=== PATIENT | female | born 1930 | race Caucasian/White ===

== ENCOUNTER 2016-08-30 13:02 | Inpatient (IN) | payer MEDICARE, OTHER ==
[~2016-08-30] VITALS: Ht 152.4 cm; Wt 47.9 kg
[~2016-08-30 13:02] MED LIST: ASP81EC PO; CLOP75TA41 PO; DIPH25CA66 PO; MET25T PO; MON10T PO
[2016-08-30 14:00] LABS: Basophils # (auto) 0 uL; Basophils % (auto) 0.4 % (0.0-2.0); Eosinophils # (auto) 0.2 uL; Eosinophils % (auto) 3.1 % (0.0-7.0); Hematocrit 32.6 % (36.0-46.0); Lymphocytes # (auto) 1.1 uL; Mean Corpuscular Hemoglobin 31.6 pg (28.0-32.0); Mean Corpuscular Hgb Conc. 33.6 g/dL (32.0-36.0); Mean Platelet Volume 8.1 fL (7.4-10.4); Monocytes # (auto) 0.6 uL; Neutrophils # (auto) 4.6 uL; Neutrophils % (auto) 70.5 % (37.0-80.0); Platelet Count (auto) 219 10^3/uL (140-450); Red Cell Distribution Width 15.7 % (11.6-16.0); White Blood Cell 6.6 10^3/uL (4.4-10.8)
[2016-08-30 14:15] LABS: Albumin 2.9 g/dL (3.4-5.0); Anion Gap 11 (5-15); Aspartate Aminotransferase 10 U/L (15-37); BUN/Creatinine Ratio 15.5; Blood Urea Nitrogen 11 mg/dL (7-18); Calcium 8.1 mg/dL (8.5-10.1); Carbon Dioxide 24 mmol/L (21-32); Chloride 110 mmol/L (98-107); GFR African American 101 mL/min; GFR Non-African American 83 mL/min; Glucose 92 mg/dL (74-106); Potassium 3.3 mmol/L (3.5-5.1); Sodium 145 mmol/L (136-145)
[2016-08-30 14:20] LABS: Alkaline Phosphatase 56 U/L (45-117); Bilirubin, Total 0.3 mg/dL (0.2-1.0); Total Protein 6.2 g/dL (6.4-8.2)
[2016-08-30] MEDS ORDERED: ENOXAPARIN SOD 80 MG/0.8ML SYRINGE SC ONE (16:45)
[2016-08-30] MEDS ORDERED: POTASSIUM CHL 20 Meq TABLET PO ONE ×2 (16:45→17:15)
[2016-08-30] MEDS ORDERED: MONTELUKAST SODIUM 10 MG TAB PO PRN (17:15)
[2016-08-30] MEDS ORDERED: HYDROcodone-ACET 5/325MG TAB PO PRN (17:15)
[2016-08-30] MEDS ORDERED: ACETAMINOPHEN 500 MG TAB PO PRN (17:15)
[2016-08-30] MEDS ORDERED: MORPHINE SULF INJ 2 MG/ML SYRINGE 1ML IV PRN (17:15)
[2016-08-30] MEDS ORDERED: NITROGLYCERIN 0.4 MG SL TAB SL PRN (17:15)
[2016-08-30] MEDS ORDERED: PROMETHAZINE HCL 25 MG/ML 1ML IV PRN (17:15)
[2016-08-30] MEDS ORDERED: LORazepam 0.5 MG TAB PO PRN (17:15)
[2016-08-30] MEDS ORDERED: LACTULOSE 20Gm/30ML SOLN PO PRN ×2 (17:15)
[2016-08-30] MEDS ORDERED: DEXTROSE (50%) 50ML SYRG IV PRN (17:15)
[2016-08-30] MEDS ORDERED: ENOXAPARIN SOD 40 MG/0.4 ML SYRINGE SC ONE (18:00)
[2016-08-30] MEDS ORDERED: CLOPIDOGREL BISULFATE 75 MG TAB PO ONE (18:00)
[2016-08-30] MEDS ORDERED: ASPirin 81 mg TAB PO ONE (18:00)
[2016-08-30 18:02] LABS: INR 0.96 (0.9-1.15); Partial Thromboplastin Time 27.3 sec (22.64-33.71); Prothrombin Time 10.5 sec (9.37-12.3)
[2016-08-30 18:20] LABS: Temperature: 22.7 C (20.0-25.0)
[2016-08-30] MEDS: SODIUM CHLORIDE 0.9% 1,000 ML IV SCH (18:41)
[2016-08-30] MEDS: PANTOPRAZOLE 40 MG TAB PO SCH (18:41)
[2016-08-30] MEDS ORDERED: IOHEXOL 350 MG/ML 100ML IJ ONE (19:42)
[2016-08-30 20:30] VITALS: BP 165/72
[2016-08-30 22:00] VITALS: BP 165/72
[2016-08-30] MEDS: ACCU-CHEK COMFORT CURVE STRIP VI SCH (22:00)
[2016-08-30] MEDS: METOPROLOL TARTRATE 25 MG TAB PO SCH (22:00)
[2016-08-30] MEDS: CLINDAMYCIN 600MG IV 50 ML IV SCH (22:00)
[2016-08-30] MEDS: InsuLIN REG 1unit/0.01ml Soln (100units/ml) SC SCH (22:00)
[2016-08-30] MEDS: ATORVASTATIN 20 MG TAB PO SCH (22:00)
[2016-08-30] MEDS: TEMAZEPAM 15 MG CAP PO PRN (22:10)
[2016-08-31] MEDS: SODIUM CHLORIDE 0.9% 1,000 ML IV SCH (05:36)
[2016-08-31] MEDS: ACCU-CHEK COMFORT CURVE STRIP VI SCH ×4 (06:20→22:00)
[2016-08-31] MEDS: InsuLIN REG 1unit/0.01ml Soln (100units/ml) SC SCH ×4 (06:20→22:00)
[2016-08-31] MEDS: CLINDAMYCIN 600MG IV 50 ML IV SCH ×3 (06:20→22:27)
[2016-08-31 06:25] VITALS: BP 165/80
[2016-08-31] MEDS ORDERED: MEMA5TAB2 PO (06:45)
[2016-08-31] MEDS ORDERED: MEMA10TA PO (06:45)
[2016-08-31] MEDS ORDERED: QUET100T46 PO (06:45)
[2016-08-31] MEDS: METOPROLOL TARTRATE 25 MG TAB PO SCH ×2 (06:54→22:26)
[2016-08-31 08:11] VITALS: BP 165/80
[2016-08-31 08:59] LABS: Basophils # (auto) 0 uL; Basophils % (auto) 0.7 % (0.0-2.0); Eosinophils # (auto) 0.3 uL; Eosinophils % (auto) 5.1 % (0.0-7.0); Hemoglobin 11.7 g/dL (12.2-16.2); Lymphocytes # (auto) 0.8 uL; Lymphocytes % (auto) 11.6 % (10.0-50.0); Mean Corpuscular Hemoglobin 31.2 pg (28.0-32.0); Mean Corpuscular Hgb Conc. 33.4 g/dL (32.0-36.0); Mean Corpuscular Volume 93.3 fL (80.0-100.0); Mean Platelet Volume 8.5 fL (7.4-10.4); Monocytes # (auto) 0.6 uL; Neutrophils # (auto) 5.2 uL; Neutrophils % (auto) 74.6 % (37.0-80.0); Platelet Count (auto) 204 10^3/uL (140-450); Red Cell Distribution Width 15.4 % (11.6-16.0); White Blood Cell 6.9 10^3/uL (4.4-10.8)
[2016-08-31] MEDS: PANTOPRAZOLE 40 MG TAB PO SCH (09:04)
[2016-08-31] MEDS: CLOPIDOGREL BISULFATE 75 MG TAB PO SCH (09:04)
[2016-08-31] MEDS: cefTRIAXone 1GM/50ML D5W 50 ML IV SCH (09:05)
[2016-08-31] MEDS: ENOXAPARIN SOD 40 MG/0.4 ML SYRINGE SC SCH (09:05)
[2016-08-31] MEDS: ASPirin 81 mg TAB PO SCH (09:05)
[2016-08-31 09:08] VITALS: BP 124/72
[2016-08-31 09:20] LABS: Albumin 2.9 g/dL (3.4-5.0); BUN/Creatinine Ratio 16.2; Bilirubin, Total 0.6 mg/dL (0.2-1.0); Calcium 8.2 mg/dL (8.5-10.1); Potassium 4.2 mmol/L (3.5-5.1)
[2016-08-31] MEDS ORDERED: ENOXAPARIN SOD 40 MG/0.4 ML SYRINGE SC SCH (10:00)
[2016-08-31] MEDS ORDERED: ASPirin-EC 81 mg tab PO SCH (10:00)
[2016-08-31 13:00] VITALS: BP 153/77
[2016-08-31] MEDS ORDERED: GABA-497 PO (13:42)
[2016-08-31] MEDS ORDERED: QUET25TA37 PO (13:44)
[2016-08-31] MEDS ORDERED: LORazepam 2MG/ML-1ML VIAL IV PRN (14:30)
[2016-08-31 22:00] VITALS: BP 153/73
[2016-08-31] MEDS: TEMAZEPAM 15 MG CAP PO PRN (22:25)
[2016-08-31] MEDS: ATORVASTATIN 20 MG TAB PO SCH (22:26)
[2016-08-31] MEDS: QUEtiapine FUMARATE 25 MG TAB PO SCH (22:26)
[2016-09-01] MEDS: MORPHINE SULF INJ 2 MG/ML SYRINGE 1ML IV PRN ×3 (03:23→13:12)
[2016-09-01] MEDS: SODIUM CHLORIDE 0.9% 1,000 ML IV SCH ×3 (06:36→17:26)
[2016-09-01] MEDS: CLINDAMYCIN 600MG IV 50 ML IV SCH ×3 (06:44→22:21)
[2016-09-01] MEDS: InsuLIN REG 1unit/0.01ml Soln (100units/ml) SC SCH ×4 (07:00→22:00)
[2016-09-01] MEDS: ACCU-CHEK COMFORT CURVE STRIP VI SCH ×4 (07:12→22:00)
[2016-09-01 08:15] VITALS: BP 130/70
[2016-09-01 09:13] LABS: Basophils # (auto) 0 uL; Basophils % (auto) 0.4 % (0.0-2.0); Eosinophils # (auto) 0.2 uL; Eosinophils % (auto) 3.9 % (0.0-7.0); Hematocrit 33.8 % (36.0-46.0); Hemoglobin 11.2 g/dL (12.2-16.2); Lymphocytes # (auto) 0.6 uL; Lymphocytes % (auto) 10.8 % (10.0-50.0); Mean Corpuscular Hemoglobin 31.1 pg (28.0-32.0); Mean Corpuscular Hgb Conc. 33.2 g/dL (32.0-36.0); Mean Corpuscular Volume 93.9 fL (80.0-100.0); Mean Platelet Volume 8.4 fL (7.4-10.4); Monocytes # (auto) 0.6 uL; Monocytes % (auto) 9.7 % (0.0-12.0); Neutrophils # (auto) 4.5 uL; Neutrophils % (auto) 75.2 % (37.0-80.0); Platelet Count (auto) 218 10^3/uL (140-450); Red Cell Distribution Width 15.6 % (11.6-16.0)
[2016-09-01] MEDS: cefTRIAXone 1GM/50ML D5W 50 ML IV SCH (09:18)
[2016-09-01 09:20] LABS: BUN/Creatinine Ratio 12.5; Calcium 7.8 mg/dL (8.5-10.1); Potassium 3.7 mmol/L (3.5-5.1)
[2016-09-01] MEDS: ASPirin 81 mg TAB PO SCH (09:39)
[2016-09-01] MEDS: FOLIC ACID 1 MG TAB PO SCH (09:39)
[2016-09-01] MEDS: PANTOPRAZOLE 40 MG TAB PO SCH (09:40)
[2016-09-01] MEDS: METOPROLOL TARTRATE 25 MG TAB PO SCH ×2 (09:40→22:27)
[2016-09-01] MEDS: CLOPIDOGREL BISULFATE 75 MG TAB PO SCH (09:40)
[2016-09-01] MEDS: ENOXAPARIN SOD 40 MG/0.4 ML SYRINGE SC SCH (09:41)
[2016-09-01] MEDS: QUEtiapine FUMARATE 25 MG TAB PO SCH ×2 (09:41→22:27)
[2016-09-01] MEDS: CYANOCOBALAMIN 500 MCG TAB PO SCH (09:41)
[2016-09-01 13:07] VITALS: BP 146/74
[2016-09-01 15:43] LABS: Urine Bilirubin Negative (Negative); Urine Color Yellow (Yellow); Urine Glucose Normal (Normal); Urine Ketone Negative (Negative); Urine Nitrite Negative (Negative); Urine RBC 8 /hpf (0 - 4); Urine Squamous Epithelial Cell FEW /hpf (<5); Urine Urobilinogen Normal (Negative)
[2016-09-01 16:36] LABS: Urine Blood 1+ /uL (Negative)
[2016-09-01 22:00] VITALS: BP 143/63
[2016-09-01] MEDS: ATORVASTATIN 20 MG TAB PO SCH (22:26)
[2016-09-02 05:00] VITALS: BP 161/67
[2016-09-02] MEDS: CLINDAMYCIN 600MG IV 50 ML IV SCH ×3 (06:34→22:51)
[2016-09-02] MEDS: InsuLIN REG 1unit/0.01ml Soln (100units/ml) SC SCH ×4 (07:00→22:00)
[2016-09-02] MEDS: ACCU-CHEK COMFORT CURVE STRIP VI SCH ×4 (07:26→22:00)
[2016-09-02 08:00] VITALS: BP 132/61
[2016-09-02 09:00] VITALS: BP 132/61
[2016-09-02] MEDS: METOPROLOL TARTRATE 25 MG TAB PO SCH ×2 (09:15→22:51)
[2016-09-02] MEDS: cefTRIAXone 1GM/50ML D5W 50 ML IV SCH (09:15)
[2016-09-02] MEDS: ASPirin 81 mg TAB PO SCH (09:15)
[2016-09-02] MEDS: FOLIC ACID 1 MG TAB PO SCH (09:15)
[2016-09-02] MEDS: PANTOPRAZOLE 40 MG TAB PO SCH (09:16)
[2016-09-02] MEDS: ENOXAPARIN SOD 40 MG/0.4 ML SYRINGE SC SCH (09:16)
[2016-09-02] MEDS: CLOPIDOGREL BISULFATE 75 MG TAB PO SCH (09:16)
[2016-09-02] MEDS: QUEtiapine FUMARATE 25 MG TAB PO SCH ×2 (09:16→22:51)
[2016-09-02] MEDS: CYANOCOBALAMIN 500 MCG TAB PO SCH (09:17)
[2016-09-02 13:00] VITALS: BP 139/62
[2016-09-02] MEDS: FLORASTOR (S. BOULARDII) 250 MG CAP PO SCH (16:23)
[2016-09-02 17:00] VITALS: BP 135/76
[2016-09-02] MEDS: SODIUM CHLORIDE 0.9% 1,000 ML IV SCH (17:33)
[2016-09-02 22:00] VITALS: BP 149/88
[2016-09-02] MEDS: ATORVASTATIN 20 MG TAB PO SCH (22:51)
[2016-09-02] MEDS: MORPHINE SULF INJ 2 MG/ML SYRINGE 1ML IV PRN (23:04)
[2016-09-03 05:00] VITALS: BP 146/80
[2016-09-03] MEDS: CLINDAMYCIN 600MG IV 50 ML IV SCH ×3 (06:35→21:05)
[2016-09-03] MEDS: ACCU-CHEK COMFORT CURVE STRIP VI SCH ×4 (06:35→21:08)
[2016-09-03] MEDS: InsuLIN REG 1unit/0.01ml Soln (100units/ml) SC SCH ×4 (07:00→21:07)
[2016-09-03] MEDS: ASPirin 81 mg TAB PO SCH (09:16)
[2016-09-03] MEDS: cefTRIAXone 1GM/50ML D5W 50 ML IV SCH (09:16)
[2016-09-03] MEDS: METOPROLOL TARTRATE 25 MG TAB PO SCH ×2 (09:17→21:07)
[2016-09-03] MEDS: FOLIC ACID 1 MG TAB PO SCH (09:17)
[2016-09-03] MEDS: CLOPIDOGREL BISULFATE 75 MG TAB PO SCH (09:18)
[2016-09-03] MEDS: PANTOPRAZOLE 40 MG TAB PO SCH (09:18)
[2016-09-03 11:06] LABS: Basophils # (auto) 0 uL; Basophils % (auto) 0.3 % (0.0-2.0); Eosinophils # (auto) 0.2 uL; Eosinophils % (auto) 3.4 % (0.0-7.0); Hematocrit 36.6 % (36.0-46.0); Hemoglobin 12.2 g/dL (12.2-16.2); Lymphocytes # (auto) 0.6 uL; Lymphocytes % (auto) 9.8 % (10.0-50.0); Mean Corpuscular Hemoglobin 31.3 pg (28.0-32.0); Mean Corpuscular Hgb Conc. 33.4 g/dL (32.0-36.0); Mean Corpuscular Volume 93.7 fL (80.0-100.0); Mean Platelet Volume 8.7 fL (7.4-10.4); Monocytes # (auto) 0.5 uL; Monocytes % (auto) 9.4 % (0.0-12.0); Neutrophils # (auto) 4.3 uL; Neutrophils % (auto) 77.1 % (37.0-80.0); Platelet Count (auto) 227 10^3/uL (140-450); Red Cell Distribution Width 15.2 % (11.6-16.0); SUSPECT VIEW TRANSMISSION; White Blood Cell 5.6 10^3/uL (4.4-10.8)
[2016-09-03] MEDS: FLORASTOR (S. BOULARDII) 250 MG CAP PO SCH (11:14)
[2016-09-03] MEDS: QUEtiapine FUMARATE 25 MG TAB PO SCH ×2 (11:14→21:07)
[2016-09-03] MEDS: CYANOCOBALAMIN 500 MCG TAB PO SCH (11:15)
[2016-09-03] MEDS: ENOXAPARIN SOD 40 MG/0.4 ML SYRINGE SC SCH (11:15)
[2016-09-03 11:37] LABS: BUN/Creatinine Ratio 11.5; Calcium 8.2 mg/dL (8.5-10.1); Potassium 3.9 mmol/L (3.5-5.1)
[2016-09-03] MEDS: SODIUM CHLORIDE 0.9% 1,000 ML IV SCH (17:30)
[2016-09-03] MEDS: ATORVASTATIN 20 MG TAB PO SCH (21:06)
[2016-09-03 21:46] VITALS: BP 109/78
[2016-09-04 05:02] VITALS: BP 153/80
[2016-09-04] MEDS: CLINDAMYCIN 600MG IV 50 ML IV SCH (05:32)
[2016-09-04] MEDS: InsuLIN REG 1unit/0.01ml Soln (100units/ml) SC SCH ×4 (06:21→22:00)
[2016-09-04] MEDS: ACCU-CHEK COMFORT CURVE STRIP VI SCH ×4 (06:21→22:00)
[2016-09-04 08:00] VITALS: BP 122/79
[2016-09-04 09:48] VITALS: BP 122/79
[2016-09-04] MEDS: ENOXAPARIN SOD 40 MG/0.4 ML SYRINGE SC SCH ×2 (10:00→10:09)
[2016-09-04] MEDS: FLORASTOR (S. BOULARDII) 250 MG CAP PO SCH (10:07)
[2016-09-04] MEDS: PANTOPRAZOLE 40 MG TAB PO SCH (10:07)
[2016-09-04] MEDS: CYANOCOBALAMIN 500 MCG TAB PO SCH (10:07)
[2016-09-04] MEDS: cefTRIAXone 1GM/50ML D5W 50 ML IV SCH (10:07)
[2016-09-04] MEDS: FOLIC ACID 1 MG TAB PO SCH (10:08)
[2016-09-04] MEDS: QUEtiapine FUMARATE 25 MG TAB PO SCH ×3 (10:08→23:18)
[2016-09-04] MEDS: ASPirin 81 mg TAB PO SCH (10:08)
[2016-09-04] MEDS: CLOPIDOGREL BISULFATE 75 MG TAB PO SCH (10:08)
[2016-09-04] MEDS: METOPROLOL TARTRATE 25 MG TAB PO SCH ×3 (10:08→23:17)
[2016-09-04 15:41] VITALS: BP 145/77
[2016-09-04] MEDS: SODIUM CHLORIDE 0.9% 1,000 ML IV SCH (17:06)
[2016-09-04 17:41] VITALS: BP 138/80
[2016-09-04 22:00] VITALS: BP 142/79
[2016-09-04] MEDS: ATORVASTATIN 20 MG TAB PO SCH ×2 (22:00→23:15)
[2016-09-05 05:00] VITALS: BP 114/71
[2016-09-05] MEDS: InsuLIN REG 1unit/0.01ml Soln (100units/ml) SC SCH ×3 (06:58→17:00)
[2016-09-05] MEDS: ACCU-CHEK COMFORT CURVE STRIP VI SCH ×3 (06:58→17:00)
[2016-09-05 08:00] VITALS: BP 142/79
[2016-09-05 08:53] VITALS: BP 132/86
[2016-09-05] MEDS: ASPirin 81 mg TAB PO SCH (09:57)
[2016-09-05] MEDS: FLORASTOR (S. BOULARDII) 250 MG CAP PO SCH (09:57)
[2016-09-05] MEDS: FOLIC ACID 1 MG TAB PO SCH (09:57)
[2016-09-05] MEDS: QUEtiapine FUMARATE 25 MG TAB PO SCH (09:58)
[2016-09-05] MEDS: CLOPIDOGREL BISULFATE 75 MG TAB PO SCH (09:58)
[2016-09-05] MEDS: CYANOCOBALAMIN 500 MCG TAB PO SCH (09:58)
[2016-09-05] MEDS: ENOXAPARIN SOD 40 MG/0.4 ML SYRINGE SC SCH (09:58)
[2016-09-05] MEDS: METOPROLOL TARTRATE 25 MG TAB PO SCH (09:58)
[2016-09-05] MEDS: PANTOPRAZOLE 40 MG TAB PO SCH (09:58)
[2016-09-05 15:07] VITALS: BP 125/81
[2016-09-05 15:33] VITALS: BP 125/81
[2016-09-05] MEDS: SODIUM CHLORIDE 0.9% 1,000 ML IV SCH (17:06)
== END 2016-09-05 19:25 | disposition home or self-care (01) | DRG 602 ==
LOC: EDBD 13:02 → ER 13:11 → TELE 13:12 → TELE-WESTW 20:30 → WEST WING 09-04 01:36
PROVIDERS: ADMIT Internal Medicine; ATTEND Internal Medicine
DX: L03.116 Cellulitis of left lower limb (principal); G93.41 Metabolic encephalopathy; E43 Unspecified severe protein-calorie malnutrition; F23 Brief psychotic disorder; E87.6 Hypokalemia; I25.10 Atherosclerotic heart disease of native coronary artery without angina pectoris; I50.9 Heart failure, unspecified; M19.90 Unspecified osteoarthritis, unspecified site; J44.9 Chronic obstructive pulmonary disease, unspecified; D63.8 Anemia in other chronic diseases classified elsewhere; D35.02 Benign neoplasm of left adrenal gland; I11.0 Hypertensive heart disease with heart failure; F03.90 Unspecified dementia, unspecified severity, without behavioral disturbance, psychotic disturbance, mood disturbance, and anxiety; E11.9 Type 2 diabetes mellitus without complications; F41.9 Anxiety disorder, unspecified; G47.00 Insomnia, unspecified; K59.00 Constipation, unspecified; E53.8 Deficiency of other specified B group vitamins; Z95.5 Presence of coronary angioplasty implant and graft; Z95.1 Presence of aortocoronary bypass graft; Z80.0 Family history of malignant neoplasm of digestive organs; Z80.1 Family history of malignant neoplasm of trachea, bronchus and lung; Z80.3 Family history of malignant neoplasm of breast; Z80.41 Family history of malignant neoplasm of ovary; Z80.8 Family history of malignant neoplasm of other organs or systems; Z81.8 Family history of other mental and behavioral disorders; Z82.0 Family history of epilepsy and other diseases of the nervous system; Z82.3 Family history of stroke; Z82.49 Family history of ischemic heart disease and other diseases of the circulatory system; Z82.5 Family history of asthma and other chronic lower respiratory diseases; Z82.62 Family history of osteoporosis; Z83.3 Family history of diabetes mellitus; Z91.83 Wandering in diseases classified elsewhere; Z88.0 Allergy status to penicillin; Z88.6 Allergy status to analgesic agent; Z79.82 Long term (current) use of aspirin; Z79.899 Other long term (current) drug therapy; Z90.49 Acquired absence of other specified parts of digestive tract; Z90.89 Acquired absence of other organs; Z71.3 Dietary counseling and surveillance; Z68.20 Body mass index [BMI] 20.0-20.9, adult; Z53.29 Procedure and treatment not carried out because of patient's decision for other reasons
CPT/HCPCS: 36415; 36600; 70450; 71010; 71275; 80048; 80053; 81001; 82550; 82607; 82746; 82805; 82962; 83036; 84443; 84484; 85025; 85379; 85610; 85652; 85730; 87040; 87086; 93005; 93971; 96372; J0696; J3490

== ENCOUNTER 2017-01-23 16:50 | Inpatient (IN) | payer OTHER ==
[~2017-01-23] VITALS: Ht 152.4 cm; Wt 53.7 kg
[~2017-01-23 16:50] MED LIST changes: +CLOP75TA28 PO; -CLOP75TA41 PO; -DIPH25CA66 PO; +DOCU100C8 PO; +FAM20T PO; +GABA-497 PO; +MEM5T PO; -MON10T PO; +QUET25TA37 PO
[2017-01-23] MEDS ORDERED: DEXTROSE 50% SYRINGE 50 ML IV ONE (17:05)
[2017-01-23] MEDS ORDERED: DEXTROSE (50%) 50ML SYRG IV ONE ×2 (17:15→19:00)
[2017-01-23] MEDS ORDERED: SODIUM CHLORIDE 0.9% 1,000 ML IV ONE (19:30)
[2017-01-23 19:41] LABS: Urine Bacteria NONE SEEN /hpf (None Seen); Urine Blood Negative /uL (Negative); Urine Specific Gravity 1.012 (1.001-1.035); Urine WBC 26 /hpf (0 - 5)
[2017-01-23] MEDS ORDERED: DEXTROSE 10% 1,000 ML IV ONE (20:00)
[2017-01-23 20:03] LABS: Basophils # (auto) 0 uL; Basophils % (auto) 0.2 % (0.0-2.0); Eosinophils # (auto) 0 uL; Eosinophils % (auto) 0.3 % (0.0-7.0); Hematocrit 36.6 % (36.0-46.0); Hemoglobin 12.3 g/dL (12.2-16.2); Lymphocytes # (auto) 0.7 uL; Lymphocytes % (auto) 6.5 % (10.0-50.0); Mean Corpuscular Hemoglobin 31.8 pg (28.0-32.0); Mean Corpuscular Hgb Conc. 33.4 g/dL (32.0-36.0); Mean Corpuscular Volume 95.1 fL (80.0-100.0); Monocytes # (auto) 0.6 uL; Monocytes % (auto) 5.9 % (0.0-12.0); Neutrophils # (auto) 8.8 uL; Neutrophils % (auto) 87.1 % (37.0-80.0); Platelet Count (auto) 208 10^3/uL (140-450); Red Blood Cells 3.85 10^6/uL (4.0-5.20); Red Cell Distribution Width 13.7 % (11.8-14.3); White Blood Cell 10.1 10^3/uL (4.4-10.8)
[2017-01-23 20:36] LABS: Albumin 2.9 g/dL (3.4-5.0); BUN/Creatinine Ratio 26.6; Bilirubin, Total 0.3 mg/dL (0.2-1.0); Calcium 8.5 mg/dL (8.5-10.1); Potassium 3.5 mmol/L (3.5-5.1); Total Protein 6.4 g/dL (6.4-8.2)
[2017-01-23] MEDS ORDERED: GLUCAGON HYDROCHLORIDE (RDNA) 1 MG VIAL IV ONE (21:45)
[2017-01-24] MEDS ORDERED: DEXTROSE (50%) 50ML SYRG IV ONE ×2 (01:15→02:00)
[2017-01-24] MEDS ORDERED: DEXTROSE 10% 1,000 ML IV SCH ×2 (02:45→03:15)
[2017-01-24] MEDS ORDERED: DEXTROSE 10% 1,000 ML IV ONE (03:00)
[2017-01-24] MEDS ORDERED: LEVOFLOXACIN 500MG 100 ML IV ONE (03:00)
[2017-01-24] MEDS ORDERED: NITROGLYCERIN 0.4 MG SL TAB SL PRN (03:00)
[2017-01-24] MEDS ORDERED: MORPHINE SULFATE 10 MG/ML INJ 1ML SDV IV PRN (03:00)
[2017-01-24] MEDS ORDERED: DOCUSATE SOD 100 MG CAP PO PRN (03:00)
[2017-01-24] MEDS ORDERED: ACETAMINOPHEN 325 MG TAB PO PRN (03:00)
[2017-01-24] MEDS ORDERED: ONDANSETRON HCL 4 MG/2 ML VIAL IV PRN (03:00)
[2017-01-24] MEDS ORDERED: DEXTROSE (50%) 50ML SYRG IV PRN ×2 (03:15→14:15)
[2017-01-24] MEDS: ACCU-CHEK COMFORT CURVE STRIP VI SCH ×10 (03:22→22:11)
[2017-01-24] MEDS: DEXTROSE (50%) 50ML SYRG IV PRN ×2 (03:51→06:22)
[2017-01-24] MEDS ORDERED: InsuLIN REG 1unit/0.01ml Soln (100units/ml) SC SCH (04:00)
[2017-01-24] MEDS ORDERED: ACCU-CHEK COMFORT CURVE STRIP VI SCH (04:00)
[2017-01-24] MEDS: DEXTROSE 10% 1,000 ML IV SCH ×3 (04:34→13:15)
[2017-01-24] MEDS: METOPROLOL TARTRATE 25 MG TAB PO SCH ×2 (09:46→22:00)
[2017-01-24] MEDS: MEMANTINE HCL 5 MG TAB PO SCH ×2 (09:47→22:00)
[2017-01-24] MEDS: FAMOTIDINE 20 MG TAB PO SCH ×2 (09:47→22:00)
[2017-01-24] MEDS: CLOPIDOGREL BISULFATE 75 MG TAB PO SCH (09:47)
[2017-01-24] MEDS: ENOXAPARIN SOD 40 MG/0.4 ML SYRINGE SC SCH (09:47)
[2017-01-24] MEDS ORDERED: HALOPERIDOL LACTATE 5 MG/ML INJ VIAL ONE (13:33)
[2017-01-24] MEDS ORDERED: HALOPERIDOL LACTATE 5 MG/ML INJ VIAL IM ONE (13:45)
[2017-01-24] MEDS ORDERED: LORazepam 2MG/ML-1ML VIAL ONE (14:00)
[2017-01-24] MEDS ORDERED: LORazepam 2MG/ML-1ML VIAL IV PRN (15:00)
[2017-01-24] MEDS: BOOST PLUS 8 ounce PO SCH (18:00)
[2017-01-24] MEDS ORDERED: MULTIPLE VITAMINS W/ MINERALS TAB PO ONE (18:00)
[2017-01-24 19:56] LABS: Urine Bacteria NONE SEEN /hpf (None Seen); Urine Blood TRACE /uL (Negative); Urine Specific Gravity 1.005 (1.001-1.035); Urine WBC 4 /hpf (0 - 5)
[2017-01-24 22:00] VITALS: BP 157/84
[2017-01-24] MEDS: ASCORBIC ACID 500 MG TAB PO SCH (22:00)
[2017-01-25] MEDS: ACCU-CHEK COMFORT CURVE STRIP VI SCH ×6 (02:16→22:38)
[2017-01-25] MEDS: LEVOFLOXACIN 500MG 100 ML IV SCH (03:04)
[2017-01-25 06:00] VITALS: BP 128/77
[2017-01-25] MEDS: DEXTROSE 10% 1,000 ML IV SCH ×2 (06:03→22:35)
[2017-01-25 07:12] LABS: Basophils # (auto) 0.1 uL; Basophils % (auto) 0.7 % (0.0-2.0); Eosinophils # (auto) 0.1 uL; Eosinophils % (auto) 0.7 % (0.0-7.0); Hematocrit 33.5 % (36.0-46.0); Hemoglobin 11.2 g/dL (12.2-16.2); Lymphocytes # (auto) 0.7 uL; Lymphocytes % (auto) 7.4 % (10.0-50.0); Mean Corpuscular Hgb Conc. 33.5 g/dL (32.0-36.0); Mean Corpuscular Volume 95.7 fL (80.0-100.0); Monocytes # (auto) 0.9 uL; Monocytes % (auto) 9.9 % (0.0-12.0); Neutrophils # (auto) 7.2 uL; Neutrophils % (auto) 81.3 % (37.0-80.0); Platelet Count (auto) 195 10^3/uL (140-450); Red Cell Distribution Width 13.4 % (11.8-14.3); White Blood Cell 8.8 10^3/uL (4.4-10.8)
[2017-01-25 07:25] LABS: Albumin 2.5 g/dL (3.4-5.0); BUN/Creatinine Ratio 10.3; Bilirubin, Total 0.7 mg/dL (0.2-1.0); Calcium 7.4 mg/dL (8.5-10.1); Magnesium 1.8 mg/dL (1.6-2.6); Potassium 3.4 mmol/L (3.5-5.1); Total Protein 5.9 g/dL (6.4-8.2)
[2017-01-25 08:00] VITALS: BP 128/77
[2017-01-25] MEDS: BOOST PLUS 8 ounce PO SCH ×3 (08:00→18:00)
[2017-01-25 09:00] VITALS: BP 142/76
[2017-01-25] MEDS: ASCORBIC ACID 500 MG TAB PO SCH ×2 (10:00→22:38)
[2017-01-25] MEDS: MEMANTINE HCL 5 MG TAB PO SCH ×2 (10:00→22:37)
[2017-01-25] MEDS: METOPROLOL TARTRATE 25 MG TAB PO SCH ×2 (10:00→22:37)
[2017-01-25] MEDS: ENOXAPARIN SOD 40 MG/0.4 ML SYRINGE SC SCH (10:00)
[2017-01-25] MEDS: MULTIPLE VITAMINS W/ MINERALS TAB PO SCH (10:00)
[2017-01-25] MEDS: FAMOTIDINE 20 MG TAB PO SCH ×2 (10:00→22:37)
[2017-01-25] MEDS: CLOPIDOGREL BISULFATE 75 MG TAB PO SCH (10:00)
[2017-01-25 13:00] VITALS: BP 139/68
[2017-01-25 14:49] LABS: % Iron Saturation 20.5 % (15-50)
[2017-01-25 16:51] VITALS: BP 148/77
[2017-01-26] MEDS: ACCU-CHEK COMFORT CURVE STRIP VI SCH ×6 (01:57→21:59)
[2017-01-26] MEDS: LEVOFLOXACIN 500MG 100 ML IV SCH (03:13)
[2017-01-26] MEDS: BOOST PLUS 8 ounce PO SCH ×3 (08:00→17:52)
[2017-01-26 09:00] VITALS: BP 161/88
[2017-01-26] MEDS: ASCORBIC ACID 500 MG TAB PO SCH ×2 (12:04→21:51)
[2017-01-26] MEDS: MULTIPLE VITAMINS W/ MINERALS TAB PO SCH (12:04)
[2017-01-26] MEDS: FAMOTIDINE 20 MG TAB PO SCH ×2 (12:05→21:51)
[2017-01-26] MEDS: MEMANTINE HCL 5 MG TAB PO SCH ×2 (12:05→21:51)
[2017-01-26] MEDS: CLOPIDOGREL BISULFATE 75 MG TAB PO SCH (12:05)
[2017-01-26] MEDS: ENOXAPARIN SOD 40 MG/0.4 ML SYRINGE SC SCH (12:05)
[2017-01-26] MEDS: METOPROLOL TARTRATE 25 MG TAB PO SCH ×2 (12:08→21:51)
[2017-01-26 13:00] VITALS: BP 142/77
[2017-01-26] MEDS: DEXTROSE 10% 1,000 ML IV SCH (15:15)
[2017-01-26 17:00] VITALS: BP 159/77
[2017-01-26 22:00] VITALS: BP 159/67
[2017-01-27] MEDS: ACCU-CHEK COMFORT CURVE STRIP VI SCH ×4 (02:02→14:00)
[2017-01-27] MEDS: DEXTROSE 10% 1,000 ML IV SCH (05:03)
[2017-01-27 05:15] VITALS: BP 169/66
[2017-01-27 07:21] LABS: Basophils # (auto) 0.1 uL; Basophils % (auto) 0.9 % (0.0-2.0); Eosinophils # (auto) 0.5 uL; Eosinophils % (auto) 6.6 % (0.0-7.0); Hematocrit 39.3 % (36.0-46.0); Hemoglobin 13.2 g/dL (12.2-16.2); Lymphocytes # (auto) 1.1 uL; Lymphocytes % (auto) 15.7 % (10.0-50.0); Mean Corpuscular Hemoglobin 31.9 pg (28.0-32.0); Mean Corpuscular Hgb Conc. 33.6 g/dL (32.0-36.0); Mean Corpuscular Volume 94.9 fL (80.0-100.0); Monocytes # (auto) 0.6 uL; Monocytes % (auto) 7.7 % (0.0-12.0); Neutrophils # (auto) 5.1 uL; Neutrophils % (auto) 69.1 % (37.0-80.0); Platelet Count (auto) 242 10^3/uL (140-450); Red Blood Cells 4.14 10^6/uL (4.0-5.20); Red Cell Distribution Width 13.3 % (11.8-14.3); White Blood Cell 7.3 10^3/uL (4.4-10.8)
[2017-01-27 07:45] LABS: Albumin 3.1 g/dL (3.4-5.0); BUN/Creatinine Ratio 7.9; Bilirubin, Total 0.5 mg/dL (0.2-1.0); Calcium 8.6 mg/dL (8.5-10.1); Potassium 3.5 mmol/L (3.5-5.1); Total Protein 6.9 g/dL (6.4-8.2)
[2017-01-27 08:00] VITALS: BP 145/71
[2017-01-27] MEDS: BOOST PLUS 8 ounce PO SCH ×2 (08:00→12:00)
[2017-01-27 08:41] VITALS: BP 156/72
[2017-01-27] MEDS ORDERED: cefTRIAXone 1GM/50ML D5W 50 ML IV SCH (09:00)
[2017-01-27] MEDS: ENOXAPARIN SOD 40 MG/0.4 ML SYRINGE SC SCH (10:00)
[2017-01-27] MEDS ORDERED: NITR-48 PO (10:45)
[2017-01-27] MEDS: CLOPIDOGREL BISULFATE 75 MG TAB PO SCH (11:14)
[2017-01-27] MEDS: ASCORBIC ACID 500 MG TAB PO SCH (11:15)
[2017-01-27] MEDS: MULTIPLE VITAMINS W/ MINERALS TAB PO SCH (11:15)
[2017-01-27] MEDS: METOPROLOL TARTRATE 25 MG TAB PO SCH (11:15)
[2017-01-27] MEDS: MEMANTINE HCL 5 MG TAB PO SCH (11:15)
[2017-01-27] MEDS: FAMOTIDINE 20 MG TAB PO SCH (11:16)
[2017-01-27 12:07] VITALS: BP 145/71
[2017-01-27 14:08] VITALS: BP 141/71
[2017-01-27 14:46] VITALS: BP 134/73
== END 2017-01-27 14:50 | DRG 637 ==
LOC: EDBD 16:50 → ER 16:50 → TELE 16:51 → TELE-CENTR 01-24 15:44
PROVIDERS: ADMIT Nurse Practitioner; ATTEND Internal Medicine
DX: E11.649 Type 2 diabetes mellitus with hypoglycemia without coma (principal); G93.41 Metabolic encephalopathy; E44.0 Moderate protein-calorie malnutrition; E11.22 Type 2 diabetes mellitus with diabetic chronic kidney disease; I13.0 Hypertensive heart and chronic kidney disease with heart failure and stage 1 through stage 4 chronic kidney disease, or unspecified chronic kidney disease; N39.0 Urinary tract infection, site not specified; B96.20 Unspecified Escherichia coli [E. coli] as the cause of diseases classified elsewhere; E87.6 Hypokalemia; F02.80 Dementia in other diseases classified elsewhere, unspecified severity, without behavioral disturbance, psychotic disturbance, mood disturbance, and anxiety; G30.9 Alzheimer's disease, unspecified; I25.10 Atherosclerotic heart disease of native coronary artery without angina pectoris; I50.9 Heart failure, unspecified; I67.2 Cerebral atherosclerosis; F41.9 Anxiety disorder, unspecified; K59.00 Constipation, unspecified; D64.9 Anemia, unspecified; N18.9 Chronic kidney disease, unspecified; Z80.1 Family history of malignant neoplasm of trachea, bronchus and lung; Z80.3 Family history of malignant neoplasm of breast; Z80.41 Family history of malignant neoplasm of ovary; Z80.8 Family history of malignant neoplasm of other organs or systems; Z81.8 Family history of other mental and behavioral disorders; Z82.0 Family history of epilepsy and other diseases of the nervous system; Z82.3 Family history of stroke; Z82.49 Family history of ischemic heart disease and other diseases of the circulatory system; Z82.5 Family history of asthma and other chronic lower respiratory diseases; Z82.62 Family history of osteoporosis; Z83.3 Family history of diabetes mellitus; Z87.440 Personal history of urinary (tract) infections; Z95.1 Presence of aortocoronary bypass graft; Z88.5 Allergy status to narcotic agent; Z88.6 Allergy status to analgesic agent; Z79.899 Other long term (current) drug therapy; Z79.82 Long term (current) use of aspirin; Z90.49 Acquired absence of other specified parts of digestive tract; Z90.89 Acquired absence of other organs; Z68.23 Body mass index [BMI] 23.0-23.9, adult
CPT/HCPCS: 36415; 36600; 70450; 71010; 80053; 81001; 82805; 82962; 83540; 83550; 83735; 85025; 87081; 87086; 87088; 87186; 93005; 96361; 96365; 96375; 96376; J0696; J1956

== ENCOUNTER 2017-03-30 16:13 | Inpatient (IN) | payer MEDICARE, OTHER ==
[~2017-03-30] VITALS: Ht 152.4 cm; Wt 43.2 kg
[~2017-03-30 16:13] MED LIST changes: -GABA-497 PO; +GABA300C10 PO; +NITR-48 PO
[2017-03-30 18:10] LABS: Basophils # (auto) 0 uL; Basophils % (auto) 0.3 % (0.0-2.0); Eosinophils # (auto) 0 uL; Eosinophils % (auto) 0.3 % (0.0-7.0); Hematocrit 37.6 % (36.0-46.0); Hemoglobin 12.6 g/dL (12.2-16.2); Lymphocytes # (auto) 0.6 uL; Lymphocytes % (auto) 6.3 % (10.0-50.0); Mean Corpuscular Hemoglobin 31.3 pg (28.0-32.0); Mean Corpuscular Hgb Conc. 33.6 g/dL (32.0-36.0); Mean Corpuscular Volume 93.2 fL (80.0-100.0); Monocytes # (auto) 0.5 uL; Monocytes % (auto) 4.8 % (0.0-12.0); Neutrophils # (auto) 8.3 uL; Neutrophils % (auto) 88.3 % (37.0-80.0); Platelet Count (auto) 266 10^3/uL (140-450); Red Blood Cells 4.03 10^6/uL (4.0-5.20); Red Cell Distribution Width 14.2 % (11.8-14.3); White Blood Cell 9.4 10^3/uL (4.4-10.8)
[2017-03-30 18:47] LABS: Albumin 2.6 g/dL (3.4-5.0); BUN/Creatinine Ratio 18.9; Bilirubin, Total 0.7 mg/dL (0.2-1.0); Calcium 8.5 mg/dL (8.5-10.1); Total Protein 7.3 g/dL (6.4-8.2)
[2017-03-30 19:00] LABS: INR 0.92 (0.9-1.15); Partial Thromboplastin Time 25.1 sec (22.64-33.71)
[2017-03-30] MEDS ORDERED: SODIUM CHLORIDE 0.9% 1,000 ML IVB ONE (20:49)
[2017-03-30] MEDS ORDERED: POTASSIUM CHL 10% (20 MEQ/15ML) 15ml ORAL SOLN PO ONE (22:00)
[2017-03-30] MEDS ORDERED: LORazepam 2MG/ML-1ML VIAL IV ONE (22:00)
[2017-03-30] MEDS ORDERED: diphenhdrAMINE HCL 50 MG/1 ML VL IV ONE (22:00)
[2017-03-30 23:25] LABS: Lactic Acid w/Reflex 2.5 mmol/L (0.4-2.0)
[2017-03-31 00:03] LABS: Urine Bacteria MANY /hpf (None Seen); Urine Blood Negative /uL (Negative); Urine Hyaline Cast MOD /lpf (0 - 2); Urine Mucus FEW (None Seen); Urine Specific Gravity 1.021 (1.001-1.035); Urine WBC 51 /hpf (0 - 5); Urine WBC Clumps PRESENT /hpf (None Seen)
[2017-03-31] MEDS ORDERED: SODIUM CHLORIDE 0.9% 1,000 ML IV SCH (00:36)
[2017-03-31] MEDS ORDERED: ONDANSETRON HCL 4 MG/2 ML VIAL IV PRN (00:45)
[2017-03-31] MEDS ORDERED: DEXTROSE (50%) 50ML SYRG IV PRN (00:45)
[2017-03-31] MEDS ORDERED: LEVOFLOXACIN 500MG 100 ML IV ONE (00:45)
[2017-03-31] MEDS ORDERED: ACETAMINOPHEN 325 MG TAB PO PRN (00:45)
[2017-03-31] MEDS ORDERED: InsuLIN REG 1unit/0.01ml Soln (100units/ml) SC SCH (06:00)
[2017-03-31] MEDS: ACCU-CHEK COMFORT CURVE STRIP VI SCH ×3 (06:00→17:10)
[2017-03-31] MEDS: MEMANTINE HCL 5 MG TAB PO SCH (10:00)
[2017-03-31] MEDS: CLOPIDOGREL BISULFATE 75 MG TAB PO SCH (10:00)
[2017-03-31] MEDS: QUEtiapine FUMARATE 25 MG TAB PO SCH ×2 (10:00→21:03)
[2017-03-31] MEDS: PANTOPRAZOLE 40 MG TAB PO SCH (10:00)
[2017-03-31] MEDS: METOPROLOL TARTRATE 25 MG TAB PO SCH ×2 (10:00→21:03)
[2017-03-31] MEDS: ENOXAPARIN SOD 30 MG/0.3 ML SYRINGE SC SCH (10:13)
[2017-03-31] MEDS: LEVOFLOXACIN 500MG 100 ML IV SCH (10:25)
[2017-03-31] MEDS ORDERED: HALOPERIDOL 5 MG TAB PO PRN (13:45)
[2017-03-31] MEDS ORDERED: HALOPERIDOL LACTATE 5 MG/ML INJ VIAL IM ONE (14:00)
[2017-03-31] MEDS: D5W/SOD CHL 0.45%/KCL 20MEQ 1,000 ML IV SCH (14:06)
[2017-03-31 23:40] VITALS: BP 134/73
[2017-04-01] MEDS: ACCU-CHEK COMFORT CURVE STRIP VI SCH ×5 (00:13→23:44)
[2017-04-01 05:00] VITALS: BP 129/73
[2017-04-01] MEDS: D5W/SOD CHL 0.45%/KCL 20MEQ 1,000 ML IV SCH ×2 (05:39→15:25)
[2017-04-01 06:00] LABS: Basophils # (auto) 0 uL; Basophils % (auto) 0.5 % (0.0-2.0); Eosinophils # (auto) 0.1 uL; Eosinophils % (auto) 1.4 % (0.0-7.0); Hematocrit 35.8 % (36.0-46.0); Hemoglobin 12.3 g/dL (12.2-16.2); Lymphocytes # (auto) 0.9 uL; Lymphocytes % (auto) 12.4 % (10.0-50.0); Mean Corpuscular Hemoglobin 31.8 pg (28.0-32.0); Mean Corpuscular Hgb Conc. 34.3 g/dL (32.0-36.0); Mean Corpuscular Volume 92.8 fL (80.0-100.0); Monocytes # (auto) 0.8 uL; Monocytes % (auto) 10.4 % (0.0-12.0); Neutrophils # (auto) 5.5 uL; Neutrophils % (auto) 75.3 % (37.0-80.0); Nucleated Red Blood Cells % 0.1 %; Platelet Count (auto) 259 10^3/uL (140-450); Red Blood Cells 3.86 10^6/uL (4.0-5.20); Red Cell Distribution Width 13.8 % (11.8-14.3); White Blood Cell 7.4 10^3/uL (4.4-10.8)
[2017-04-01 06:15] LABS: Albumin 2.2 g/dL (3.4-5.0); BUN/Creatinine Ratio 14.5
[2017-04-01 06:18] LABS: Bilirubin, Total 0.5 mg/dL (0.2-1.0); Total Protein 6.2 g/dL (6.4-8.2)
[2017-04-01 06:23] LABS: Potassium 2.8 mmol/L (3.5-5.1)
[2017-04-01] MEDS ORDERED: POTASSIUM CHL 20 Meq TABLET PO ONE ×2 (07:00→10:15)
[2017-04-01 08:00] VITALS: BP 121/64
[2017-04-01] MEDS ORDERED: VANCOMYCIN PER PHARMACY 0 MG IV SCH (09:00)
[2017-04-01] MEDS: LEVOFLOXACIN 500MG 100 ML IV SCH (10:08)
[2017-04-01] MEDS: CLOPIDOGREL BISULFATE 75 MG TAB PO SCH (10:09)
[2017-04-01] MEDS: MEMANTINE HCL 5 MG TAB PO SCH (10:09)
[2017-04-01] MEDS: ENOXAPARIN SOD 30 MG/0.3 ML SYRINGE SC SCH (10:09)
[2017-04-01] MEDS: PANTOPRAZOLE 40 MG TAB PO SCH (10:10)
[2017-04-01] MEDS: QUEtiapine FUMARATE 25 MG TAB PO SCH ×2 (10:10→22:02)
[2017-04-01] MEDS: METOPROLOL TARTRATE 25 MG TAB PO SCH ×2 (10:10→22:02)
[2017-04-01] MEDS: VANCOMYCIN 1GM/250ML 250 ML IV SCH (11:50)
[2017-04-01 17:00] VITALS: BP 143/89
[2017-04-02] MEDS: D5W/SOD CHL 0.45%/KCL 20MEQ 1,000 ML IV SCH ×2 (04:45→18:35)
[2017-04-02] MEDS: ACCU-CHEK COMFORT CURVE STRIP VI SCH ×3 (05:29→18:35)
[2017-04-02 05:42] VITALS: BP 124/66
[2017-04-02 09:00] VITALS: BP 137/92
[2017-04-02] MEDS: POTASSIUM CHL 20 Meq TABLET PO SCH (09:37)
[2017-04-02] MEDS: cefTRIAXone 1GM/10ml IVPUSH 10 ML IV SCH (09:37)
[2017-04-02] MEDS: CLOPIDOGREL BISULFATE 75 MG TAB PO SCH (09:37)
[2017-04-02] MEDS: MEMANTINE HCL 5 MG TAB PO SCH (09:37)
[2017-04-02] MEDS: PANTOPRAZOLE 40 MG TAB PO SCH (09:37)
[2017-04-02] MEDS: METOPROLOL TARTRATE 25 MG TAB PO SCH ×2 (09:38→21:59)
[2017-04-02] MEDS: QUEtiapine FUMARATE 25 MG TAB PO SCH ×2 (09:38→22:00)
[2017-04-02] MEDS: ENOXAPARIN SOD 30 MG/0.3 ML SYRINGE SC SCH (09:39)
[2017-04-02] MEDS: VANCOMYCIN 1GM/250ML 250 ML IV SCH (11:33)
[2017-04-02 13:00] VITALS: BP 146/62
[2017-04-02 13:04] LABS: Basophils # (auto) 0.1 uL; Basophils % (auto) 1.2 % (0.0-2.0); Eosinophils # (auto) 0.1 uL; Eosinophils % (auto) 0.6 % (0.0-7.0); Hematocrit 42.1 % (36.0-46.0); Lymphocytes # (auto) 1.5 uL; Lymphocytes % (auto) 18.6 % (10.0-50.0); Mean Corpuscular Hemoglobin 31.3 pg (28.0-32.0); Mean Corpuscular Hgb Conc. 33.1 g/dL (32.0-36.0); Mean Corpuscular Volume 94.5 fL (80.0-100.0); Monocytes # (auto) 0.9 uL; Neutrophils # (auto) 5.7 uL; Neutrophils % (auto) 68.6 % (37.0-80.0); Nucleated Red Blood Cells % 0.1 %; Platelet Count (auto) 328 10^3/uL (140-450); Red Blood Cells 4.46 10^6/uL (4.0-5.20); Red Cell Distribution Width 14.3 % (11.8-14.3); White Blood Cell 8.3 10^3/uL (4.4-10.8)
[2017-04-02 13:37] LABS: BUN/Creatinine Ratio 6.7; Calcium 8.4 mg/dL (8.5-10.1); Potassium 3.7 mmol/L (3.5-5.1)
[2017-04-02 17:00] VITALS: BP 154/89
[2017-04-02] MEDS: PRO-STAT 64 30ML PO SCH (18:00)
[2017-04-02] MEDS: Boost Glucose Control 8 Ounces PO SCH (18:00)
[2017-04-02 22:00] VITALS: BP 128/75
[2017-04-02] MEDS: ASCORBIC ACID 500 MG TAB PO SCH (22:00)
[2017-04-02] MEDS: DOCUSATE SOD 100 MG CAP PO SCH (22:00)
[2017-04-03] MEDS: ACCU-CHEK COMFORT CURVE STRIP VI SCH ×5 (00:02→23:43)
[2017-04-03 05:00] VITALS: BP 153/94
[2017-04-03 06:02] LABS: Basophils # (auto) 0.1 uL; Basophils % (auto) 0.7 % (0.0-2.0); Eosinophils # (auto) 0.2 uL; Eosinophils % (auto) 2.7 % (0.0-7.0); Hematocrit 42.7 % (36.0-46.0); Hemoglobin 14.4 g/dL (12.2-16.2); Lymphocytes # (auto) 1.4 uL; Lymphocytes % (auto) 20.6 % (10.0-50.0); Mean Corpuscular Hemoglobin 31.5 pg (28.0-32.0); Mean Corpuscular Hgb Conc. 33.8 g/dL (32.0-36.0); Mean Corpuscular Volume 93.3 fL (80.0-100.0); Monocytes # (auto) 0.8 uL; Monocytes % (auto) 11.2 % (0.0-12.0); Neutrophils # (auto) 4.4 uL; Neutrophils % (auto) 64.8 % (37.0-80.0); Nucleated Red Blood Cells % 0.2 %; Platelet Count (auto) 267 10^3/uL (140-450); Red Blood Cells 4.57 10^6/uL (4.0-5.20); Red Cell Distribution Width 14.3 % (11.8-14.3); White Blood Cell 6.8 10^3/uL (4.4-10.8)
[2017-04-03 06:08] LABS: Albumin 2.4 g/dL (3.4-5.0); Calcium 8.3 mg/dL (8.5-10.1); Potassium 4.1 mmol/L (3.5-5.1)
[2017-04-03 06:10] LABS: BUN/Creatinine Ratio 6.8
[2017-04-03 06:12] LABS: Bilirubin, Total 0.5 mg/dL (0.2-1.0); Total Protein 6.9 g/dL (6.4-8.2)
[2017-04-03] MEDS: D5W/SOD CHL 0.45%/KCL 20MEQ 1,000 ML IV SCH (07:25)
[2017-04-03 07:30] VITALS: BP 137/79
[2017-04-03] MEDS: PRO-STAT 64 30ML PO SCH ×2 (08:00→17:54)
[2017-04-03] MEDS: Boost Glucose Control 8 Ounces PO SCH ×3 (08:00→17:54)
[2017-04-03 08:32] VITALS: BP 134/74
[2017-04-03] MEDS: cefTRIAXone 1GM/10ml IVPUSH 10 ML IV SCH (08:38)
[2017-04-03] MEDS: DOCUSATE SOD 100 MG CAP PO SCH ×2 (08:42→22:00)
[2017-04-03] MEDS: ENOXAPARIN SOD 30 MG/0.3 ML SYRINGE SC SCH (08:43)
[2017-04-03] MEDS: QUEtiapine FUMARATE 25 MG TAB PO SCH ×2 (08:52→22:00)
[2017-04-03] MEDS: ASCORBIC ACID 500 MG TAB PO SCH ×2 (08:52→22:00)
[2017-04-03] MEDS: PANTOPRAZOLE 40 MG TAB PO SCH (08:52)
[2017-04-03] MEDS: METOPROLOL TARTRATE 25 MG TAB PO SCH ×2 (08:53→22:00)
[2017-04-03] MEDS: POTASSIUM CHL 20 Meq TABLET PO SCH (08:53)
[2017-04-03] MEDS: CLOPIDOGREL BISULFATE 75 MG TAB PO SCH (08:53)
[2017-04-03] MEDS: MEMANTINE HCL 5 MG TAB PO SCH (08:53)
[2017-04-03] MEDS: MULTIPLE VITAMINS W/ MINERALS TAB PO SCH (08:54)
[2017-04-03] MEDS: VANCOMYCIN 1GM/250ML 250 ML IV SCH (11:00)
[2017-04-03] MEDS: LINEZOLID 600MG/300ML 300 ML IV SCH ×2 (12:50→22:07)
[2017-04-03 14:06] VITALS: BP 120/70
[2017-04-03 17:28] VITALS: BP 142/73
[2017-04-03 21:25] VITALS: BP 124/68
[2017-04-04] MEDS: D5W/SOD CHL 0.45%/KCL 20MEQ 1,000 ML IV SCH ×2 (01:32→17:31)
[2017-04-04 03:56] VITALS: BP 128/69
[2017-04-04] MEDS: ACCU-CHEK COMFORT CURVE STRIP VI SCH ×4 (05:34→23:56)
[2017-04-04] MEDS: PRO-STAT 64 30ML PO SCH ×2 (08:00→18:00)
[2017-04-04] MEDS: Boost Glucose Control 8 Ounces PO SCH ×3 (08:00→18:00)
[2017-04-04] MEDS: cefTRIAXone 1GM/10ml IVPUSH 10 ML IV SCH (09:55)
[2017-04-04] MEDS: ENOXAPARIN SOD 30 MG/0.3 ML SYRINGE SC SCH (09:56)
[2017-04-04] MEDS: METOPROLOL TARTRATE 25 MG TAB PO SCH ×2 (10:00→21:45)
[2017-04-04] MEDS: ASCORBIC ACID 500 MG TAB PO SCH ×2 (10:00→21:46)
[2017-04-04] MEDS: PANTOPRAZOLE 40 MG TAB PO SCH (10:00)
[2017-04-04] MEDS: QUEtiapine FUMARATE 25 MG TAB PO SCH ×2 (10:00→21:46)
[2017-04-04] MEDS: DOCUSATE SOD 100 MG CAP PO SCH ×2 (10:00→21:45)
[2017-04-04] MEDS: MEMANTINE HCL 5 MG TAB PO SCH (10:00)
[2017-04-04] MEDS: CLOPIDOGREL BISULFATE 75 MG TAB PO SCH (10:00)
[2017-04-04] MEDS: POTASSIUM CHL 20 Meq TABLET PO SCH (10:00)
[2017-04-04] MEDS: MULTIPLE VITAMINS W/ MINERALS TAB PO SCH (10:00)
[2017-04-04] MEDS: LINEZOLID 600MG/300ML 300 ML IV SCH ×2 (10:40→22:00)
[2017-04-04 12:00] VITALS: BP 128/69
[2017-04-04 13:00] VITALS: BP 143/75
[2017-04-04 18:23] VITALS: BP 119/68
[2017-04-04 22:00] VITALS: BP 133/67
[2017-04-05 05:00] VITALS: BP 146/76
[2017-04-05] MEDS: ACCU-CHEK COMFORT CURVE STRIP VI SCH ×3 (05:37→17:51)
[2017-04-05] MEDS: Boost Glucose Control 8 Ounces PO SCH ×3 (08:00→17:51)
[2017-04-05] MEDS: PRO-STAT 64 30ML PO SCH ×2 (08:00→17:51)
[2017-04-05 09:56] VITALS: BP 131/71
[2017-04-05] MEDS: ASCORBIC ACID 500 MG TAB PO SCH ×2 (10:00→21:47)
[2017-04-05] MEDS: QUEtiapine FUMARATE 25 MG TAB PO SCH ×2 (10:00→21:47)
[2017-04-05] MEDS: MULTIPLE VITAMINS W/ MINERALS TAB PO SCH (10:00)
[2017-04-05] MEDS: METOPROLOL TARTRATE 25 MG TAB PO SCH ×2 (10:00→21:49)
[2017-04-05] MEDS: PANTOPRAZOLE 40 MG TAB PO SCH (10:00)
[2017-04-05] MEDS: DOCUSATE SOD 100 MG CAP PO SCH ×2 (10:00→21:46)
[2017-04-05] MEDS: MEMANTINE HCL 5 MG TAB PO SCH (10:00)
[2017-04-05] MEDS: CLOPIDOGREL BISULFATE 75 MG TAB PO SCH (10:00)
[2017-04-05] MEDS: POTASSIUM CHL 20 Meq TABLET PO SCH (10:00)
[2017-04-05] MEDS: cefTRIAXone 1GM/10ml IVPUSH 10 ML IV SCH (10:17)
[2017-04-05] MEDS: LINEZOLID 600MG/300ML 300 ML IV SCH ×2 (10:17→21:46)
[2017-04-05] MEDS: ENOXAPARIN SOD 30 MG/0.3 ML SYRINGE SC SCH (10:18)
[2017-04-05] MEDS: D5W/SOD CHL 0.45%/KCL 20MEQ 1,000 ML IV SCH ×2 (12:00→21:47)
[2017-04-05 13:10] VITALS: BP 134/72
[2017-04-05 17:00] VITALS: BP 144/70
[2017-04-05 21:53] VITALS: BP 128/73
[2017-04-06] MEDS: ACCU-CHEK COMFORT CURVE STRIP VI SCH ×4 (00:06→17:48)
[2017-04-06 05:00] VITALS: BP 137/76
[2017-04-06] MEDS: PRO-STAT 64 30ML PO SCH ×2 (08:00→17:57)
[2017-04-06] MEDS: Boost Glucose Control 8 Ounces PO SCH ×3 (08:00→17:57)
[2017-04-06 09:00] VITALS: BP 111/63
[2017-04-06] MEDS: cefTRIAXone 1GM/10ml IVPUSH 10 ML IV SCH (09:02)
[2017-04-06] MEDS: LINEZOLID 600MG/300ML 300 ML IV SCH ×2 (09:02→22:31)
[2017-04-06] MEDS: ENOXAPARIN SOD 30 MG/0.3 ML SYRINGE SC SCH (09:02)
[2017-04-06] MEDS: QUEtiapine FUMARATE 25 MG TAB PO SCH ×2 (10:00→22:00)
[2017-04-06] MEDS: MEMANTINE HCL 5 MG TAB PO SCH (10:00)
[2017-04-06] MEDS: POTASSIUM CHL 20 Meq TABLET PO SCH (10:00)
[2017-04-06] MEDS: METOPROLOL TARTRATE 25 MG TAB PO SCH ×2 (10:00→22:00)
[2017-04-06] MEDS: DOCUSATE SOD 100 MG CAP PO SCH ×2 (10:00→22:00)
[2017-04-06] MEDS: ASCORBIC ACID 500 MG TAB PO SCH ×2 (10:00→22:00)
[2017-04-06] MEDS: CLOPIDOGREL BISULFATE 75 MG TAB PO SCH (10:00)
[2017-04-06] MEDS: PANTOPRAZOLE 40 MG TAB PO SCH (10:00)
[2017-04-06] MEDS: MULTIPLE VITAMINS W/ MINERALS TAB PO SCH (10:00)
[2017-04-06 17:00] VITALS: BP 116/72
[2017-04-06 18:09] LABS: BUN/Creatinine Ratio 8.6; Calcium 8.5 mg/dL (8.5-10.1); Potassium 3.5 mmol/L (3.5-5.1)
[2017-04-06 21:03] VITALS: BP 129/64
[2017-04-07] MEDS: ACCU-CHEK COMFORT CURVE STRIP VI SCH ×3 (00:08→18:17)
[2017-04-07] MEDS: D5W/SOD CHL 0.45%/KCL 20MEQ 1,000 ML IV SCH (03:57)
[2017-04-07 05:05] VITALS: BP 106/59
[2017-04-07 05:33] LABS: Basophils # (auto) 0.1 uL; Basophils % (auto) 1.4 % (0.0-2.0); Eosinophils # (auto) 0.2 uL; Hematocrit 37.7 % (36.0-46.0); Hemoglobin 12.7 g/dL (12.2-16.2); Lymphocytes # (auto) 1.4 uL; Lymphocytes % (auto) 19.7 % (10.0-50.0); Mean Corpuscular Hemoglobin 31.6 pg (28.0-32.0); Mean Corpuscular Hgb Conc. 33.6 g/dL (32.0-36.0); Mean Corpuscular Volume 93.9 fL (80.0-100.0); Monocytes # (auto) 0.6 uL; Monocytes % (auto) 8.7 % (0.0-12.0); Neutrophils # (auto) 4.8 uL; Neutrophils % (auto) 67.2 % (37.0-80.0); Platelet Count (auto) 263 10^3/uL (140-450); Red Blood Cells 4.01 10^6/uL (4.0-5.20); Red Cell Distribution Width 14.4 % (11.8-14.3); White Blood Cell 7.1 10^3/uL (4.4-10.8)
[2017-04-07 05:57] LABS: Albumin 2.3 g/dL (3.4-5.0); BUN/Creatinine Ratio 9.4; Bilirubin, Total 0.3 mg/dL (0.2-1.0); Calcium 8.1 mg/dL (8.5-10.1); Potassium 3.4 mmol/L (3.5-5.1); Total Protein 6.2 g/dL (6.4-8.2)
[2017-04-07] MEDS: Boost Glucose Control 8 Ounces PO SCH ×3 (08:00→18:00)
[2017-04-07] MEDS: PRO-STAT 64 30ML PO SCH ×2 (08:00→18:00)
[2017-04-07 09:00] VITALS: BP 149/68
[2017-04-07] MEDS: cefTRIAXone 1GM/10ml IVPUSH 10 ML IV SCH (09:00)
[2017-04-07] MEDS: ENOXAPARIN SOD 30 MG/0.3 ML SYRINGE SC SCH (10:00)
[2017-04-07] MEDS: CLOPIDOGREL BISULFATE 75 MG TAB PO SCH ×2 (10:00→10:48)
[2017-04-07] MEDS: DOCUSATE SOD 100 MG CAP PO SCH ×3 (10:00→22:00)
[2017-04-07] MEDS: MEMANTINE HCL 5 MG TAB PO SCH ×2 (10:00→10:49)
[2017-04-07] MEDS: QUEtiapine FUMARATE 25 MG TAB PO SCH ×2 (10:00→22:00)
[2017-04-07] MEDS: MULTIPLE VITAMINS W/ MINERALS TAB PO SCH ×2 (10:00→10:49)
[2017-04-07] MEDS: METOPROLOL TARTRATE 25 MG TAB PO SCH ×3 (10:00→22:00)
[2017-04-07] MEDS: PANTOPRAZOLE 40 MG TAB PO SCH ×2 (10:00→10:49)
[2017-04-07] MEDS: ASCORBIC ACID 500 MG TAB PO SCH ×3 (10:00→22:00)
[2017-04-07] MEDS: LINEZOLID 600MG/300ML 300 ML IV SCH ×2 (10:47→22:10)
[2017-04-07 13:00] VITALS: BP 148/71
[2017-04-07] MEDS ORDERED: DEXTROSE (50%) 50ML SYRG IV ONE (13:00)
[2017-04-07] MEDS ORDERED: DEXTROSE (50%) 50ML SYRG IV PRN (16:00)
[2017-04-07 17:00] VITALS: BP 115/52
[2017-04-07 21:30] VITALS: BP 132/64
[2017-04-07] MEDS: DEXTROSE 10% 1,000 ML IV SCH (22:10)
[2017-04-08] MEDS: ACCU-CHEK COMFORT CURVE STRIP VI SCH ×3 (01:51→10:00)
[2017-04-08 04:58] VITALS: BP 120/67
[2017-04-08 08:00] VITALS: BP 124/60
[2017-04-08] MEDS: Boost Glucose Control 8 Ounces PO SCH ×2 (08:00→12:00)
[2017-04-08] MEDS: PRO-STAT 64 30ML PO SCH (08:00)
[2017-04-08 09:07] VITALS: BP 124/60
[2017-04-08] MEDS ORDERED: HAL5T PO (09:11)
[2017-04-08] MEDS: cefTRIAXone 1GM/10ml IVPUSH 10 ML IV SCH (09:37)
[2017-04-08] MEDS: LINEZOLID 600MG/300ML 300 ML IV SCH (09:37)
[2017-04-08] MEDS: MULTIPLE VITAMINS W/ MINERALS TAB PO SCH (10:00)
[2017-04-08] MEDS: QUEtiapine FUMARATE 25 MG TAB PO SCH (10:00)
[2017-04-08] MEDS: MEMANTINE HCL 5 MG TAB PO SCH (10:00)
[2017-04-08] MEDS: METOPROLOL TARTRATE 25 MG TAB PO SCH (10:00)
[2017-04-08] MEDS: ASCORBIC ACID 500 MG TAB PO SCH (10:00)
[2017-04-08] MEDS: ENOXAPARIN SOD 30 MG/0.3 ML SYRINGE SC SCH (10:00)
[2017-04-08] MEDS: CLOPIDOGREL BISULFATE 75 MG TAB PO SCH (10:00)
[2017-04-08] MEDS: DOCUSATE SOD 100 MG CAP PO SCH (10:00)
[2017-04-08] MEDS: PANTOPRAZOLE 40 MG TAB PO SCH (10:00)
[2017-04-08] MEDS: DEXTROSE 10% 1,000 ML IV SCH (13:04)
== END 2017-04-08 14:00 | disposition hospice, home (50) | DRG 70 ==
LOC: ER 16:13 → OVERFLOW 16:14 → ER 17:49 → WEST WING 03-31 23:06
PROVIDERS: ADMIT Nurse Practitioner; ATTEND Internal Medicine
DX: G93.41 Metabolic encephalopathy (principal); E43 Unspecified severe protein-calorie malnutrition; F02.81 Dementia in other diseases classified elsewhere, unspecified severity, with behavioral disturbance; E11.22 Type 2 diabetes mellitus with diabetic chronic kidney disease; E11.649 Type 2 diabetes mellitus with hypoglycemia without coma; G30.1 Alzheimer's disease with late onset; I42.9 Cardiomyopathy, unspecified; N39.0 Urinary tract infection, site not specified; Z68.1 Body mass index [BMI] 19.9 or less, adult; B96.89 Other specified bacterial agents as the cause of diseases classified elsewhere; E86.0 Dehydration; N18.3 Chronic kidney disease, stage 3 (moderate); B96.20 Unspecified Escherichia coli [E. coli] as the cause of diseases classified elsewhere; E87.6 Hypokalemia; I12.9 Hypertensive chronic kidney disease with stage 1 through stage 4 chronic kidney disease, or unspecified chronic kidney disease; I25.10 Atherosclerotic heart disease of native coronary artery without angina pectoris; R62.7 Adult failure to thrive; Z66 Do not resuscitate; F41.9 Anxiety disorder, unspecified; B95.62 Methicillin resistant Staphylococcus aureus infection as the cause of diseases classified elsewhere; Z81.8 Family history of other mental and behavioral disorders; Z82.61 Family history of arthritis; Z91.19 Patient's noncompliance with other medical treatment and regimen; Z95.1 Presence of aortocoronary bypass graft; Z82.5 Family history of asthma and other chronic lower respiratory diseases; Z83.2 Family history of diseases of the blood and blood-forming organs and certain disorders involving the immune mechanism; Z88.0 Allergy status to penicillin; Z88.5 Allergy status to narcotic agent; Z79.82 Long term (current) use of aspirin; Z90.49 Acquired absence of other specified parts of digestive tract
CPT/HCPCS: 36415; 71045; 80048; 80053; 80202; 81001; 82962; 83605; 83735; 84132; 84484; 85025; 85610; 85730; 87040; 87077; 87086; 87088; 87186; 93005; 93306; J1956

== ENCOUNTER 2017-06-28 09:39 | Emergency (ER) | payer MEDICARE, OTHER ==
[~2017-06-28] VITALS: Ht 152.4 cm; Wt 39.0 kg
[~2017-06-28 09:39] MED LIST changes: -ASP81EC PO; -CLOP75TA28 PO; -FAM20T PO; -GABA300C10 PO; +HAL5T PO; -MEM5T PO; -MET25T PO; -NITR-48 PO
[2017-06-28 10:23] VITALS: BP 136/71
[2017-06-28 10:33] LABS: Basophils # (auto) 0 uL; Basophils % (auto) 0.6 % (0.0-2.0); Eosinophils # (auto) 0.2 uL; Eosinophils % (auto) 3.2 % (0.0-7.0); Hematocrit 39.8 % (36.0-46.0); Hemoglobin 13.3 g/dL (12.2-16.2); Lymphocytes # (auto) 1.2 uL; Lymphocytes % (auto) 16.5 % (10.0-50.0); Mean Corpuscular Hemoglobin 32.2 pg (28.0-32.0); Mean Corpuscular Hgb Conc. 33.5 g/dL (32.0-36.0); Mean Corpuscular Volume 96.3 fL (80.0-100.0); Monocytes # (auto) 0.7 uL; Monocytes % (auto) 9.6 % (0.0-12.0); Neutrophils # (auto) 5.1 uL; Neutrophils % (auto) 70.1 % (37.0-80.0); Nucleated Red Blood Cells % 0.1 %; Platelet Count (auto) 332 10^3/uL (140-450); Red Blood Cells 4.14 10^6/uL (4.0-5.20); Red Cell Distribution Width 15.9 % (11.8-14.3); White Blood Cell 7.3 10^3/uL (4.4-10.8)
[2017-06-28 10:53] LABS: Albumin 2.9 g/dL (3.4-5.0); Bilirubin, Total 0.4 mg/dL (0.2-1.0); Calcium 8.3 mg/dL (8.5-10.1); Potassium 3.2 mmol/L (3.5-5.1); Total Protein 7.3 g/dL (6.4-8.2)
[2017-06-28] MEDS ORDERED: POTASSIUM CHL 10% (20 MEQ/15ML) 15ml ORAL SOLN PO ONE (11:15)
== END 2017-06-28 11:42 | disposition home or self-care (01) ==
LOC: ER 09:43
DX: F02.80 Dementia in other diseases classified elsewhere, unspecified severity, without behavioral disturbance, psychotic disturbance, mood disturbance, and anxiety (principal); G30.9 Alzheimer's disease, unspecified; E87.6 Hypokalemia; J45.909 Unspecified asthma, uncomplicated; E11.9 Type 2 diabetes mellitus without complications; I10 Essential (primary) hypertension; Z95.0 Presence of cardiac pacemaker; Z88.0 Allergy status to penicillin; Z90.49 Acquired absence of other specified parts of digestive tract
CPT/HCPCS: 36415; 80053; 84484; 85025; 93005